=== PATIENT | female | born 1995 | race Caucasian/White ===

== ENCOUNTER 2021-10-02 17:14 | Inpatient (IN) | payer OTHER ==
[~2021-10-02] VITALS: Ht 165.1 cm; Wt 116.1 kg
[~2021-10-02 17:14] MED LIST: ACETAMINOOPHEN-1 TAB PO; CATAFLAM50 MG PO
[2021-10-03] MEDS ORDERED: LEVOTHYROXINE175 MCG (09:15)
[2021-10-03] MEDS ORDERED: MESALAMINE DR400 MG (09:15)
== END 2021-10-05 11:13 | disposition home or self-care (01) | DRG 734 ==
LOC: OB/GYN 17:14
PROVIDERS: ADMIT Internal Medicine; ATTEND Internal Medicine
PROC: 07TC4ZZ Resection of Pelvis Lymphatic, Percutaneous Endoscopic Approach (ICD-10-PCS; principal; 2021-10-02)
PROC: 0DTJ4ZZ Resection of Appendix, Percutaneous Endoscopic Approach (ICD-10-PCS; 2021-10-02)
PROC: 0W3P4ZZ Control Bleeding in Gastrointestinal Tract, Percutaneous Endoscopic Approach (ICD-10-PCS; 2021-10-02)
PROC: 0DTU4ZZ Resection of Omentum, Percutaneous Endoscopic Approach (ICD-10-PCS; 2021-10-02)
PROC: 0UT74ZZ Resection of Bilateral Fallopian Tubes, Percutaneous Endoscopic Approach (ICD-10-PCS; 2021-10-02)
PROC: 0UT24ZZ Resection of Bilateral Ovaries, Percutaneous Endoscopic Approach (ICD-10-PCS; 2021-10-02)
PROC: 0DNW4ZZ Release Peritoneum, Percutaneous Endoscopic Approach (ICD-10-PCS; 2021-10-02)
PROC: 0DBW4ZZ Excision of Peritoneum, Percutaneous Endoscopic Approach (ICD-10-PCS; 2021-10-02)
PROC: 3E1M48Z Irrigation of Peritoneal Cavity using Irrigating Substance, Percutaneous Endoscopic Approach (ICD-10-PCS; 2021-10-02)
DX: D27.1 Benign neoplasm of left ovary (principal); K91.62 Intraoperative hemorrhage and hematoma of a digestive system organ or structure complicating other procedure; Z20.822 Contact with and (suspected) exposure to COVID-19; K36 Other appendicitis